=== PATIENT | male | born 1935 | race Caucasian/White ===

== ENCOUNTER 2023-08-03 17:05 | Inpatient (IN) | payer MEDICARE ==
[2023-08-04 00:31] VITALS: BMI 16.1
[2023-08-04] MEDS ORDERED: Acetaminophen 650 MG Suppository PR PRN (00:39)
[2023-08-04] MEDS ORDERED: Senokot S 8.6-50 MG TAB PO PRN (00:39)
[2023-08-04] MEDS ORDERED: Calcium Carbonate 500 MG ChewTAB PO PRN (00:39)
[2023-08-04] MEDS ORDERED: Ondansetron PF 4 MG/2 ML Vial IVP PRN (00:39)
[2023-08-04] MEDS ORDERED: Guaifenesin DM 100-10/5 ML UDCUP PO PRN (00:39)
[2023-08-04] MEDS ORDERED: Benzonatate 100 MG CAP PO PRN (00:46)
[2023-08-04 01:26] LABS: Hematocrit 34.4 % (38.8-50.0); Mean Corpuscular Hemoglobin 24.3 pg (27.0-33.0); Mean Corpuscular Volume 75.9 fl (81.2-95.1); Platelet Count 77 10x3/uL (150-450); RBC Distribution Width 19.9 % (11.5-14.5); Red Blood Cell (RBC) Count 4.53 10x6/uL (4.32-5.72); White Blood Cell (WBC) Count 19.9 10x3/uL (3.5-10.5)
[2023-08-04 01:29] LABS: MDiff Complete? YES
[2023-08-04 01:40] LABS: ALT (SGPT) Less than 7 U/L (8-55); AST (SGOT) 14 U/L (5-34); Alkaline Phosphatase 81 U/L (40-110); Anion Gap 12 mmol/L (10-20); BUN (Urea Nitrogen) 13 mg/dL (8.4-25.7); Calc. Creatinine Clearance 71 mL/min (70-130); Calcium 9.2 mg/dL (7.8-10.44); Carbon Dioxide 26 mmol/L (23-31); Chloride 95 mmol/L (98-107); Estimated GFR 101; Globulin 3.1 g/dL (2.4-3.5); Glucose 87 mg/dL (83-110); Protein, Total 6.1 g/dL (5.8-8.1); Sodium 129 mmol/L (136-145)
[2023-08-04 01:51] LABS: Platelet Adequacy Comment Appears Decreased
[2023-08-04 01:52] LABS: Anisocytosis SLIGHT = 6-15 cells (100X) (0-5/hpf); Large Platelets SLIGHT (None Seen)
[2023-08-04 01:53] LABS: Elliptocytes SLIGHT = 2-5 cells (100X) (0-1/hpf); Hypochromia SLIGHT = 6-15 cells (100X) (0-5/hpf); Microcytosis SLIGHT = 6-15 cells (100X) (0-5/hpf); Tear Drops SLIGHT = 2-5 cells (100X) (0-1/hpf)
[2023-08-04 01:54] LABS: Polychromasia SLIGHT = 2-3 cells (100X) (0-2/hpf)
[2023-08-04 01:58] LABS: Band 18 % (5-11); Eosinophils 4 % (0-10); Lymphocytes 9 % (21-51); Metamyelocyte 2 % (0-0); Monocytes 8 % (0-10); Neutrophil 59 % (42-75)
[2023-08-04] MEDS ORDERED: Sodium Chloride 0.9% 500 ML IV SCH (02:15)
[2023-08-04] MEDS: Vancomycin HCl 750 MG in Sodium Chloride 0.9% 250 ML 250 ML IVPB SCH (02:28)
[2023-08-04] MEDS: Cefepime 2 GM in Sodium Chloride 0.9% 100 ML IVPB SCH ×2 (03:45→15:01)
[2023-08-04] MEDS ORDERED: hydrALAZINE 20 MG/ML VIAL SLOW IVP SCH (05:30)
[2023-08-04] MEDS: metroNIDAZOLE 500 MG in Premix 1 BAG IVPB SCH ×3 (06:09→21:23)
[2023-08-04] MEDS: Levothyroxine Sodium 75 MCG TAB PO SCH (06:09)
[2023-08-04 06:23] LABS: SARS-CoV-2 NAA Rapid Test Not Detected (NotDetected)
[2023-08-04] MEDS: Famotidine/PF 20 mg/2ml Vial SLOW IVP SCH ×2 (08:49→21:23)
[2023-08-04] MEDS: Digoxin 0.125 MG TAB PO SCH (08:49)
[2023-08-04] MEDS: Multivitamin W/ Minerals 1 TAB PO SCH (08:50)
[2023-08-04] MEDS: Sodium Chloride 1 GM TAB PO SCH (08:50)
[2023-08-04] MEDS ORDERED: Iopamidol 300 61% 100 ML VIAL FS ONE (09:03)
[2023-08-04] MEDS: Ipratropium Bromide 2.5 ml Neb NEB PRN ×2 (09:47→16:00)
[2023-08-04 10:28] LABS: Bilirubin Neg (Negative); Blood, Urine 250 (Negative); Clarity Cloudy (Clear); Glucose, Urine (Dipstick) Normal (Negative); Ketone, Urine Negative (Negative); Leukocyte 25 (Negative); Nitrite Negative (Negative); Protein, Urine (Dipstick) 100 mg/dl (Neg-Trace); Specific Gravity, Urine 1.025 (1.005-1.030); Urobilinogen Normal mg/dL (Less than 2)
[2023-08-04 10:47] LABS: Legionella Urinary Ag Negative (Negative); Strep pneumo Urine Ag NEGATIVE (NEGATIVE)
[2023-08-04 11:14] LABS: RBC/HPF Greater than 50 HPF (0-3); Squamous Epithelial 0-3 HPF (0-3)
[2023-08-04 11:15] LABS: Bacteria/HPF Rare-Few HPF (None Seen); Mucous/LPF Rare LPF (<2+)
[2023-08-04] MEDS: Finasteride 5 MG TAB PO SCH (21:23)
[2023-08-05] MEDS: Vancomycin HCl 750 MG in Sodium Chloride 0.9% 250 ML 250 ML IVPB SCH (01:12)
[2023-08-05 04:08] LABS: Hematocrit 33.8 % (38.8-50.0); Hemoglobin 10.6 g/dL (13.5-17.5); Mean Corpuscular HGB CONC 31.4 g/dL (32.0-36.0); Mean Corpuscular Hemoglobin 24.1 pg (27.0-33.0); Platelet Count 71 10x3/uL (150-450); RBC Distribution Width 20.1 % (11.5-14.5); Red Blood Cell (RBC) Count 4.39 10x6/uL (4.32-5.72); White Blood Cell (WBC) Count 18.1 10x3/uL (3.5-10.5)
[2023-08-05 04:09] LABS: MDiff Complete? YES
[2023-08-05 04:10] LABS: Anion Gap 10 mmol/L (10-20); BUN (Urea Nitrogen) 12 mg/dL (8.4-25.7); Calc. Creatinine Clearance 74 mL/min (70-130); Carbon Dioxide 26 mmol/L (23-31); Chloride 97 mmol/L (98-107); Estimated GFR 102; Glucose 79 mg/dL (83-110); Potassium 3.8 mmol/L (3.5-5.1); Sodium 129 mmol/L (136-145)
[2023-08-05] MEDS: Cefepime 2 GM in Sodium Chloride 0.9% 100 ML IVPB SCH ×2 (04:45→15:34)
[2023-08-05 05:06] LABS: Platelet Adequacy Comment Appears Decreased
[2023-08-05 05:08] LABS: Anisocytosis SLIGHT = 6-15 cells (100X) (0-5/hpf); Large Platelets SLIGHT (None Seen); Microcytosis SLIGHT = 6-15 cells (100X) (0-5/hpf)
[2023-08-05 05:09] LABS: Elliptocytes SLIGHT = 2-5 cells (100X) (0-1/hpf); Polychromasia SLIGHT = 2-3 cells (100X) (0-2/hpf); Tear Drops SLIGHT = 2-5 cells (100X) (0-1/hpf)
[2023-08-05 05:12] LABS: Band 16 % (5-11); Eosinophils 4 % (0-10); Lymphocytes 7 % (21-51); Metamyelocyte 2 % (0-0); Monocytes 7 % (0-10); Neutrophil 64 % (42-75); Nucleated RBC (Manual Ct) 2 % (0)
[2023-08-05] MEDS: Levothyroxine Sodium 75 MCG TAB PO SCH (06:34)
[2023-08-05] MEDS: metroNIDAZOLE 500 MG in Premix 1 BAG IVPB SCH ×3 (06:34→20:45)
[2023-08-05] MEDS: Digoxin 0.125 MG TAB PO SCH (07:59)
[2023-08-05] MEDS: Famotidine/PF 20 mg/2ml Vial SLOW IVP SCH ×2 (08:00→20:45)
[2023-08-05] MEDS: Multivitamin W/ Minerals 1 TAB PO SCH (08:00)
[2023-08-05] MEDS: Ipratropium Bromide 2.5 ml Neb NEB PRN (08:05)
[2023-08-05] MEDS: Sodium Chloride 1 GM TAB PO SCH (08:22)
[2023-08-05] MEDS: Finasteride 5 MG TAB PO SCH (20:45)
[2023-08-06] MEDS: Cefepime 2 GM in Sodium Chloride 0.9% 100 ML IVPB SCH ×2 (03:08→16:56)
[2023-08-06 03:43] LABS: Anion Gap 11 mmol/L (10-20); BUN (Urea Nitrogen) 13 mg/dL (8.4-25.7); Calc. Creatinine Clearance 71 mL/min (70-130); Calcium 9.1 mg/dL (7.8-10.44); Carbon Dioxide 25 mmol/L (23-31); Chloride 100 mmol/L (98-107); Estimated GFR 101; Glucose 88 mg/dL (83-110); Sodium 132 mmol/L (136-145)
[2023-08-06 04:07] LABS: Hematocrit 35.3 % (38.8-50.0); Hemoglobin 10.9 g/dL (13.5-17.5); MDiff Complete? YES; Mean Corpuscular HGB CONC 30.9 g/dL (32.0-36.0); Mean Corpuscular Hemoglobin 23.8 pg (27.0-33.0); Mean Corpuscular Volume 77.1 fl (81.2-95.1); Platelet Count 97 10x3/uL (150-450); RBC Distribution Width 20.4 % (11.5-14.5); Red Blood Cell (RBC) Count 4.58 10x6/uL (4.32-5.72); White Blood Cell (WBC) Count 19.1 10x3/uL (3.5-10.5)
[2023-08-06 05:28] LABS: Band 6 % (5-11); Eosinophils 1 % (0-10); Lymphocytes 11 % (21-51); Monocytes 6 % (0-10); Neutrophil 74 % (42-75); Reactive Lymphocytes 2 % (0-10)
[2023-08-06 05:33] LABS: Hypochromia SLIGHT = 6-15 cells (100X) (0-5/hpf); Microcytosis SLIGHT = 6-15 cells (100X) (0-5/hpf); Ovalocytes SLIGHT = 2-5 cells (100X) (0-1/hpf); Schistocytes SLIGHT = 2-5 cells (100X) (0-1/hpf)
[2023-08-06 05:34] LABS: Platelet Adequacy Comment Appears Decreased
[2023-08-06] MEDS: metroNIDAZOLE 500 MG in Premix 1 BAG IVPB SCH ×3 (06:03→21:41)
[2023-08-06] MEDS: Levothyroxine Sodium 75 MCG TAB PO SCH (06:07)
[2023-08-06] MEDS: Famotidine/PF 20 mg/2ml Vial SLOW IVP SCH ×2 (11:33→21:42)
[2023-08-06] MEDS: Digoxin 0.125 MG TAB PO SCH (11:33)
[2023-08-06] MEDS: Multivitamin W/ Minerals 1 TAB PO SCH (11:34)
[2023-08-06] MEDS: Sodium Chloride 1 GM TAB PO SCH (11:34)
[2023-08-06] MEDS: Finasteride 5 MG TAB PO SCH (21:41)
[2023-08-07] MEDS: Cefepime 2 GM in Sodium Chloride 0.9% 100 ML IVPB SCH ×2 (03:35→14:23)
[2023-08-07 04:00] LABS: Anion Gap 11 mmol/L (10-20); BUN (Urea Nitrogen) 11 mg/dL (8.4-25.7); Calc. Creatinine Clearance 70 mL/min (70-130); Calcium 9.2 mg/dL (7.8-10.44); Carbon Dioxide 26 mmol/L (23-31); Chloride 99 mmol/L (98-107); Estimated GFR 100; Glucose 82 mg/dL (83-110); Potassium 3.8 mmol/L (3.5-5.1); Sodium 132 mmol/L (136-145)
[2023-08-07 04:06] LABS: Hemoglobin 10.5 g/dL (13.5-17.5); Mean Corpuscular HGB CONC 30.9 g/dL (32.0-36.0); Mean Corpuscular Volume 77.8 fl (81.2-95.1); Platelet Count 60 10x3/uL (150-450); RBC Distribution Width 20.3 % (11.5-14.5); Red Blood Cell (RBC) Count 4.37 10x6/uL (4.32-5.72); White Blood Cell (WBC) Count 17.2 10x3/uL (3.5-10.5)
[2023-08-07 04:07] LABS: MDiff Complete? YES
[2023-08-07] MEDS: Levothyroxine Sodium 75 MCG TAB PO SCH (05:37)
[2023-08-07] MEDS: metroNIDAZOLE 500 MG in Premix 1 BAG IVPB SCH ×3 (05:38→21:52)
[2023-08-07 05:55] LABS: Band 13 % (5-11); Eosinophils 5 % (0-10); Lymphocytes 9 % (21-51); Monocytes 5 % (0-10); Neutrophil 57 % (42-75); Promyelocytes 2 % (0-0); Reactive Lymphocytes 9 % (0-10)
[2023-08-07 06:01] LABS: Anisocytosis SLIGHT = 6-15 cells (100X) (0-5/hpf); Hypochromia SLIGHT = 6-15 cells (100X) (0-5/hpf); Macrocytosis SLIGHT = 6-15 cells (100X) (0-5/hpf); Microcytosis SLIGHT = 6-15 cells (100X) (0-5/hpf); Ovalocytes SLIGHT = 2-5 cells (100X) (0-1/hpf)
[2023-08-07 06:02] LABS: Tear Drops SLIGHT = 2-5 cells (100X) (0-1/hpf)
[2023-08-07 06:03] LABS: Platelet Adequacy Comment Appears Decreased
[2023-08-07] MEDS: Ipratropium Bromide 2.5 ml Neb NEB PRN (06:51)
[2023-08-07] MEDS: Digoxin 0.125 MG TAB PO SCH (10:06)
[2023-08-07] MEDS: Multivitamin W/ Minerals 1 TAB PO SCH (10:08)
[2023-08-07] MEDS: Famotidine/PF 20 mg/2ml Vial SLOW IVP SCH ×2 (10:09→21:52)
[2023-08-07] MEDS: Finasteride 5 MG TAB PO SCH (21:52)
[2023-08-08] MEDS: Cefepime 2 GM in Sodium Chloride 0.9% 100 ML IVPB SCH ×2 (03:00→15:33)
[2023-08-08 04:20] LABS: Anion Gap 11 mmol/L (10-20); BUN (Urea Nitrogen) 11 mg/dL (8.4-25.7); Calc. Creatinine Clearance 71 mL/min (70-130); Calcium 8.9 mg/dL (7.8-10.44); Carbon Dioxide 25 mmol/L (23-31); Chloride 99 mmol/L (98-107); Estimated GFR 101; Glucose 84 mg/dL (83-110); Potassium 3.7 mmol/L (3.5-5.1); Sodium 131 mmol/L (136-145)
[2023-08-08 04:31] LABS: Hematocrit 34.4 % (38.8-50.0); Hemoglobin 10.7 g/dL (13.5-17.5); Mean Corpuscular HGB CONC 31.1 g/dL (32.0-36.0); Mean Corpuscular Hemoglobin 24.2 pg (27.0-33.0); Mean Corpuscular Volume 77.7 fl (81.2-95.1); Platelet Count 71 10x3/uL (150-450); RBC Distribution Width 20.5 % (11.5-14.5); Red Blood Cell (RBC) Count 4.43 10x6/uL (4.32-5.72); White Blood Cell (WBC) Count 17.1 10x3/uL (3.5-10.5)
[2023-08-08 04:41] LABS: MDiff Complete? YES
[2023-08-08 05:41] LABS: Band 2 % (5-11); Eosinophils 2 % (0-10); Lymphocytes 7 % (21-51); Monocytes 3 % (0-10); Neutrophil 70 % (42-75); Promyelocytes 1 % (0-0); Reactive Lymphocytes 15 % (0-10)
[2023-08-08 05:49] LABS: Anisocytosis SLIGHT = 6-15 cells (100X) (0-5/hpf); Elliptocytes SLIGHT = 2-5 cells (100X) (0-1/hpf); Hypochromia SLIGHT = 6-15 cells (100X) (0-5/hpf); Macrocytosis SLIGHT = 6-15 cells (100X) (0-5/hpf); Microcytosis SLIGHT = 6-15 cells (100X) (0-5/hpf); Ovalocytes SLIGHT = 2-5 cells (100X) (0-1/hpf); Schistocytes SLIGHT = 2-5 cells (100X) (0-1/hpf)
[2023-08-08 05:50] LABS: Tear Drops SLIGHT = 2-5 cells (100X) (0-1/hpf)
[2023-08-08 05:53] LABS: Platelet Adequacy Comment Appears Decreased
[2023-08-08] MEDS: metroNIDAZOLE 500 MG in Premix 1 BAG IVPB SCH ×3 (06:00→21:53)
[2023-08-08] MEDS: Levothyroxine Sodium 75 MCG TAB PO SCH (06:01)
[2023-08-08] MEDS: Multivitamin W/ Minerals 1 TAB PO SCH (08:10)
[2023-08-08] MEDS: Famotidine/PF 20 mg/2ml Vial SLOW IVP SCH ×2 (08:10→23:59)
[2023-08-08] MEDS: Digoxin 0.125 MG TAB PO SCH (08:10)
[2023-08-08] MEDS: Finasteride 5 MG TAB PO SCH (21:53)
[2023-08-09] MEDS: Cefepime 2 GM in Sodium Chloride 0.9% 100 ML IVPB SCH ×2 (03:59→16:15)
[2023-08-09 06:15] LABS: Anion Gap 11 mmol/L (10-20); BUN (Urea Nitrogen) 16 mg/dL (8.4-25.7); Calc. Creatinine Clearance 68 mL/min (70-130); Calcium 8.9 mg/dL (7.8-10.44); Carbon Dioxide 25 mmol/L (23-31); Chloride 102 mmol/L (98-107); Estimated GFR 99; Glucose 98 mg/dL (83-110); Potassium 4.1 mmol/L (3.5-5.1); Sodium 134 mmol/L (136-145)
[2023-08-09] MEDS: Levothyroxine Sodium 75 MCG TAB PO SCH (06:20)
[2023-08-09] MEDS: metroNIDAZOLE 500 MG in Premix 1 BAG IVPB SCH ×3 (06:20→21:07)
[2023-08-09 07:16] LABS: Hematocrit 33.9 % (38.8-50.0); Hemoglobin 10.7 g/dL (13.5-17.5); Mean Corpuscular HGB CONC 31.6 g/dL (32.0-36.0); Mean Corpuscular Hemoglobin 24.4 pg (27.0-33.0); Mean Corpuscular Volume 77.2 fl (81.2-95.1); RBC Distribution Width 20.6 % (11.5-14.5); Red Blood Cell (RBC) Count 4.39 10x6/uL (4.32-5.72); White Blood Cell (WBC) Count 18.9 10x3/uL (3.5-10.5)
[2023-08-09 07:17] LABS: MDiff Complete? YES; Platelet Count 63 10x3/uL (150-450)
[2023-08-09 07:31] LABS: Band 19 % (5-11); Eosinophils 3 % (0-10); Lymphocytes 4 % (21-51); Metamyelocyte 1 % (0-0); Neutrophil 64 % (42-75); Nucleated RBC (Manual Ct) 1 % (0); Reactive Lymphocytes 9 % (0-10)
[2023-08-09 07:33] LABS: Anisocytosis SLIGHT = 6-15 cells (100X) (0-5/hpf); Hypochromia SLIGHT = 6-15 cells (100X) (0-5/hpf); Ovalocytes SLIGHT = 2-5 cells (100X) (0-1/hpf); Poikilocytosis SLIGHT = 6-15 cells (100X) (0-5/hpf)
[2023-08-09 07:34] LABS: Platelet Adequacy Comment Appears Decreased
[2023-08-09] MEDS: Famotidine/PF 20 mg/2ml Vial SLOW IVP SCH ×2 (09:23→20:59)
[2023-08-09] MEDS: Multivitamin W/ Minerals 1 TAB PO SCH (09:23)
[2023-08-09] MEDS: Digoxin 0.125 MG TAB PO SCH (09:23)
[2023-08-09] MEDS ORDERED: Sodium Chloride 0.65% Nasal 44 ML BOT EA NARE PRN (09:41)
[2023-08-09] MEDS ORDERED: Vancomycin 1 GM in Sodium Chloride 0.9% 250 ML 250 ML IVPB SCH (10:00)
[2023-08-09] MEDS ORDERED: Eucerin (Mineral Oil/Petrolatum,White) 30 gm Jar TOP PRN (12:20)
[2023-08-09] MEDS: Finasteride 5 MG TAB PO SCH (20:59)
[2023-08-09] MEDS: Ipratropium Bromide 2.5 ml Neb NEB SCH (21:15)
[2023-08-09] MEDS ORDERED: Vancomycin HCl 500 MG in Sodium Chloride 0.9% 100 ML IVPB SCH (23:59)
[2023-08-10] MEDS: Cefepime 2 GM in Sodium Chloride 0.9% 100 ML IVPB SCH ×2 (02:46→14:51)
[2023-08-10 05:26] LABS: Hematocrit 34.4 % (38.8-50.0); Hemoglobin 10.6 g/dL (13.5-17.5); Mean Corpuscular HGB CONC 30.8 g/dL (32.0-36.0); Mean Corpuscular Hemoglobin 24.4 pg (27.0-33.0); Mean Corpuscular Volume 79.1 fl (81.2-95.1); Platelet Count 46 10x3/uL (150-450); RBC Distribution Width 20.8 % (11.5-14.5); Red Blood Cell (RBC) Count 4.35 10x6/uL (4.32-5.72); White Blood Cell (WBC) Count 16.6 10x3/uL (3.5-10.5)
[2023-08-10] MEDS: Levothyroxine Sodium 75 MCG TAB PO SCH (05:27)
[2023-08-10] MEDS: metroNIDAZOLE 500 MG in Premix 1 BAG IVPB SCH ×3 (05:27→21:35)
[2023-08-10 05:53] LABS: Anion Gap 9 mmol/L (10-20); BUN (Urea Nitrogen) 13 mg/dL (8.4-25.7); Calc. Creatinine Clearance 76 mL/min (70-130); Calcium 8.7 mg/dL (7.8-10.44); Carbon Dioxide 25 mmol/L (23-31); Chloride 101 mmol/L (98-107); Estimated GFR 103; Glucose 89 mg/dL (83-110); Potassium 4.1 mmol/L (3.5-5.1); Sodium 131 mmol/L (136-145)
[2023-08-10 06:40] LABS: MDiff Complete? YES
[2023-08-10 06:57] LABS: Band 3 % (5-11); Eosinophils 5 % (0-10); Lymphocytes 6 % (21-51); Metamyelocyte 1 % (0-0); Monocytes 3 % (0-10); Myelocyte 3 % (0-0); Neutrophil 78 % (42-75)
[2023-08-10 06:59] LABS: Anisocytosis SLIGHT = 6-15 cells (100X) (0-5/hpf); Hypochromia SLIGHT = 6-15 cells (100X) (0-5/hpf); Polychromasia SLIGHT = 2-3 cells (100X) (0-2/hpf)
[2023-08-10 07:02] LABS: Elliptocytes SLIGHT = 2-5 cells (100X) (0-1/hpf); Ovalocytes SLIGHT = 2-5 cells (100X) (0-1/hpf); Tear Drops SLIGHT = 2-5 cells (100X) (0-1/hpf)
[2023-08-10 07:04] LABS: Toxic Granulation SLIGHT; Vacuoles SLIGHT
[2023-08-10 07:05] LABS: Platelet Adequacy Comment Appears Decreased
[2023-08-10] MEDS: Multivitamin W/ Minerals 1 TAB PO SCH (08:39)
[2023-08-10] MEDS: Famotidine/PF 20 mg/2ml Vial SLOW IVP SCH ×2 (08:39→21:33)
[2023-08-10] MEDS: Acetaminophen 325 MG TAB PO PRN (08:39)
[2023-08-10] MEDS: Ipratropium Bromide 2.5 ml Neb NEB SCH ×2 (08:50→20:35)
[2023-08-10 11:30] LABS: Vancomycin, Trough 6.9 ug/mL
[2023-08-10] MEDS: Digoxin 0.125 MG TAB PO SCH (14:04)
[2023-08-10] MEDS: Vancomycin HCl 750 MG in Sodium Chloride 0.9% 100 ML IVPB SCH (14:48)
[2023-08-10] MEDS: Finasteride 5 MG TAB PO SCH (21:36)
[2023-08-11] MEDS: Vancomycin HCl 750 MG in Sodium Chloride 0.9% 100 ML IVPB SCH (01:46)
[2023-08-11] MEDS: Cefepime 2 GM in Sodium Chloride 0.9% 100 ML IVPB SCH (03:25)
[2023-08-11 05:20] LABS: #Basophils 0.4 10x3/uL (0.0-0.2); #Eosinphils 0.6 10x3/uL (0.0-0.5); #Monocytes 0.9 10x3/uL (0.0-1.1); #Neutrophils 11.7 10x3/uL (1.5-8.4); %Basophils 2.2 % (0.0-2.0); %Eosinophils 3.4 % (0.0-6.0); %Lymphocytes 5.4 % (18.0-47.0); %Monocytes 5.5 % (0.0-10.0); %Neutrophils 69.6 % (40.0-75.0); Hematocrit 34.1 % (38.8-50.0); Hemoglobin 10.6 g/dL (13.5-17.5); Mean Corpuscular HGB CONC 31.1 g/dL (32.0-36.0); Mean Corpuscular Hemoglobin 24.1 pg (27.0-33.0); Mean Corpuscular Volume 77.7 fl (81.2-95.1); Platelet Count 43 10x3/uL (150-450); RBC Distribution Width 20.6 % (11.5-14.5); Red Blood Cell (RBC) Count 4.39 10x6/uL (4.32-5.72); White Blood Cell (WBC) Count 16.1 10x3/uL (3.5-10.5)
[2023-08-11 05:25] LABS: Anion Gap 11 mmol/L (10-20); BUN (Urea Nitrogen) 12 mg/dL (8.4-25.7); Calc. Creatinine Clearance 70 mL/min (70-130); Calcium 9.1 mg/dL (7.8-10.44); Carbon Dioxide 26 mmol/L (23-31); Chloride 99 mmol/L (98-107); Estimated GFR 100; Glucose 84 mg/dL (83-110); Potassium 4.1 mmol/L (3.5-5.1); Sodium 132 mmol/L (136-145)
[2023-08-11] MEDS: Levothyroxine Sodium 75 MCG TAB PO SCH (05:52)
[2023-08-11] MEDS: metroNIDAZOLE 500 MG in Premix 1 BAG IVPB SCH (05:53)
[2023-08-11] MEDS: Ipratropium Bromide 2.5 ml Neb NEB SCH ×2 (07:25→19:55)
[2023-08-11] MEDS: Famotidine/PF 20 mg/2ml Vial SLOW IVP SCH ×2 (09:43→21:13)
[2023-08-11] MEDS: Digoxin 0.125 MG TAB PO SCH (09:45)
[2023-08-11] MEDS: Multivitamin W/ Minerals 1 TAB PO SCH (09:47)
[2023-08-11] MEDS: Acetaminophen 325 MG TAB PO PRN ×2 (09:48→17:44)
[2023-08-11] MEDS ORDERED: LevoFLOXacin 750 MG TAB PO SCH (12:00)
[2023-08-11] MEDS: metroNIDAZOLE 500 MG TAB PO SCH ×2 (17:43→21:28)
[2023-08-11] MEDS: Finasteride 5 MG TAB PO SCH (21:13)
[2023-08-12] MEDS ORDERED: Furosemide 20 MG/2 ML VIAL SLOW IVP SCH (02:15)
[2023-08-12] MEDS: Levothyroxine Sodium 75 MCG TAB PO SCH (05:52)
[2023-08-12] MEDS ORDERED: LevoFLOXacin 750 MG TAB PO SCH (06:00)
[2023-08-12 06:36] LABS: Anion Gap 12 mmol/L (10-20); BUN (Urea Nitrogen) 15 mg/dL (8.4-25.7); Calc. Creatinine Clearance 62 mL/min (70-130); Calcium 9.6 mg/dL (7.8-10.44); Carbon Dioxide 26 mmol/L (23-31); Chloride 97 mmol/L (98-107); Estimated GFR 96; Glucose 104 mg/dL (83-110); Potassium 3.9 mmol/L (3.5-5.1); Sodium 131 mmol/L (136-145)
[2023-08-12 07:05] LABS: Hematocrit 36.6 % (38.8-50.0); Hemoglobin 11.5 g/dL (13.5-17.5); Mean Corpuscular HGB CONC 31.4 g/dL (32.0-36.0); Mean Corpuscular Hemoglobin 24.3 pg (27.0-33.0); Mean Corpuscular Volume 77.2 fl (81.2-95.1); Platelet Count 47 10x3/uL (150-450); RBC Distribution Width 20.9 % (11.5-14.5); Red Blood Cell (RBC) Count 4.74 10x6/uL (4.32-5.72)
[2023-08-12] MEDS: Ipratropium Bromide 2.5 ml Neb NEB SCH (07:25)
[2023-08-12 08:22] LABS: MDiff Complete? YES
[2023-08-12] MEDS: Famotidine/PF 20 mg/2ml Vial SLOW IVP SCH (09:49)
[2023-08-12] MEDS ORDERED: Furosemide 40 MG/4 ML VIAL SLOW IVP SCH (10:00)
[2023-08-12] MEDS: Multivitamin W/ Minerals 1 TAB PO SCH (10:03)
[2023-08-12] MEDS: Digoxin 0.125 MG TAB PO SCH (10:03)
[2023-08-12] MEDS: metroNIDAZOLE 500 MG TAB PO SCH (10:03)
[2023-08-12] MEDS: Acetaminophen 325 MG TAB PO PRN (10:04)
[2023-08-12 11:35] LABS: Band 8 % (5-11); Eosinophils 2 % (0-10); Lymphocytes 4 % (21-51); Metamyelocyte 2 % (0-0); Monocytes 5 % (0-10); Neutrophil 76 % (42-75); Promyelocytes 2 % (0-0); Reactive Lymphocytes 1 % (0-10)
[2023-08-12 12:07] VITALS: BP 98/64
[2023-08-12 12:42] VITALS: TEMP 97.8
[2023-08-12] MEDS ORDERED: Lorazepam 2 MG/ML VIAL SLOW IVP PRN (12:50)
[2023-08-12] MEDS ORDERED: Ipratropium/Albuterol 3 ML NEB NEB PRN (12:50)
[2023-08-12] MEDS ORDERED: Scopolamine 1.5 mg/72 hour Patch TD SCH (13:15)
[2023-08-12] MEDS: Morphine 2 MG/ML VIAL SLOW IVP PRN ×2 (13:28→14:47)
[2023-08-12 13:31] LABS: Anisocytosis MODERATE=16-30 cells (100X) (0-5/hpf); Platelet Adequacy Comment Appears Decreased; Poikilocytosis SLIGHT = 6-15 cells (100X) (0-5/hpf)
[2023-08-12 13:32] LABS: Elliptocytes SLIGHT = 2-5 cells (100X) (0-1/hpf); Microcytosis SLIGHT = 6-15 cells (100X) (0-5/hpf); Tear Drops SLIGHT = 2-5 cells (100X) (0-1/hpf)
[2023-08-12 16:27] LABS: Reflex for Review?? YES
[2023-08-13] MEDS ORDERED: Furosemide 40 MG/4 ML VIAL SLOW IVP SCH (09:00)
== END 2023-08-12 15:08 | disposition hospice, inpatient (51) | DRG 871 ==
LOC: CSHTELE 23:07
PROVIDERS: ADMIT Family Medicine; ATTEND Family Medicine
DX: A41.9 Sepsis, unspecified organism (principal); E43 Unspecified severe protein-calorie malnutrition; J69.0 Pneumonitis due to inhalation of food and vomit; G93.41 Metabolic encephalopathy; J96.01 Acute respiratory failure with hypoxia; J18.9 Pneumonia, unspecified organism; I48.20 Chronic atrial fibrillation, unspecified; I69.351 Hemiplegia and hemiparesis following cerebral infarction affecting right dominant side; R64 Cachexia; E22.2 Syndrome of inappropriate secretion of antidiuretic hormone; Z68.1 Body mass index [BMI] 19.9 or less, adult; Z66 Do not resuscitate; E03.9 Hypothyroidism, unspecified; N40.0 Benign prostatic hyperplasia without lower urinary tract symptoms; Z96.641 Presence of right artificial hip joint; D69.6 Thrombocytopenia, unspecified; D45 Polycythemia vera; D72.829 Elevated white blood cell count, unspecified; Z79.01 Long term (current) use of anticoagulants; Z88.0 Allergy status to penicillin; Z88.8 Allergy status to other drugs, medicaments and biological substances; Z91.040 Latex allergy status; Z91.012 Allergy to eggs; Z91.018 Allergy to other foods; Z98.890 Other specified postprocedural states; Z79.899 Other long term (current) drug therapy; Z79.890 Hormone replacement therapy; Z20.822 Contact with and (suspected) exposure to COVID-19
CPT/HCPCS: 36415; 70110; 70330; 71045; 71260; 80048; 80053; 80202; 81001; 83605; 83880; 84145; 84300; 84443; 85025; 85060; 86140; 87040; 87081; 87449; 87899; 94760; 94762; 97139; J0360; J0692; J1940; J2060; J2272; J3370; J3490; J7030; J7050; Q9967; S0028

== ENCOUNTER 2023-08-12 15:08 | Inpatient (IN) | payer MEDICARE, OTHER ==
[2023-08-12 15:58] VITALS: BMI 15.6
[2023-08-12] MEDS: Lorazepam 2 MG/ML VIAL SLOW IVP PRN (16:29)
[2023-08-12] MEDS: Morphine 2 MG/ML VIAL SLOW IVP PRN (16:29)
[2023-08-12] MEDS: Scopolamine 1.5 mg/72 hour Patch TOP PRN (16:30)
[2023-08-13] MEDS: Morphine 2 MG/ML VIAL SLOW IVP PRN (01:59)
[2023-08-13] MEDS: Lorazepam 2 MG/ML VIAL SLOW IVP PRN ×2 (05:36→14:52)
[2023-08-14] MEDS: Morphine 2 MG/ML VIAL SLOW IVP PRN ×2 (02:41→15:38)
[2023-08-14] MEDS: Scopolamine 1.5 mg/72 hour Patch TOP PRN (22:56)
[2023-08-14] MEDS: Lorazepam 2 MG/ML VIAL SLOW IVP PRN (22:56)
[2023-08-15] MEDS: Morphine 2 MG/ML VIAL SLOW IVP PRN (04:06)
[2023-08-15 08:28] VITALS: BP 109/65; TEMP 97.7
== END 2023-08-15 15:30 | disposition expired | DRG 951 ==
LOC: CSHTELE 15:08
PROVIDERS: ADMIT Family Medicine; ATTEND Family Medicine
DX: Z51.5 Encounter for palliative care (principal); J18.9 Pneumonia, unspecified organism; J96.01 Acute respiratory failure with hypoxia; G93.41 Metabolic encephalopathy; E43 Unspecified severe protein-calorie malnutrition; A41.9 Sepsis, unspecified organism; J90 Pleural effusion, not elsewhere classified; E87.1 Hypo-osmolality and hyponatremia; I48.20 Chronic atrial fibrillation, unspecified; E03.9 Hypothyroidism, unspecified; N40.0 Benign prostatic hyperplasia without lower urinary tract symptoms; D64.9 Anemia, unspecified; D45 Polycythemia vera; Z66 Do not resuscitate
CPT/HCPCS: J2060; J2272